=== PATIENT | female | born 2000 | race Caucasian/White ===

== ENCOUNTER 2024-06-01 18:05 | Inpatient (IN) ==
--- NOTE | 2024-06-01 18:27 | Emergency Department Note ---
Impression & Plan Symptomatic cholelithiasis ED Provider Note Provider: Fernando Philip MD DATE OF SERVICE: 06/01/2024 CHIEF COMPLAINT: Worsening upper quadrant pain, nausea and vomiting HISTORY OF PRESENT ILLNESS: Patient is a 24-year-old female history metabolic syndrome presenting here today due to worsening pain in the right upper quadrant after trying to eat hotdog roll a bit hot dog this evening and some significant nausea as well as episode of vomiting. Patient Nuys any trauma or syncope. No fever chills reported. Has been having issues recently and seen here yesterday emergency department. Found of a large gallstone in the gallbladder is planning on outpatient cholecystectomy. Did see outpatient general surgery this afternoon. However this evening things worsened and her their discussion if there is worsening she is to come here. Has not had anything for pain. Still feels nauseous. Pain in the upper quadrant and back region. Did take a Tylenol prior to arrival without improvement of pain. PAST MEDICAL HISTORY: As noted above MEDICATIONS: Reviewed home medication list SOCIAL HISTORY: PHYSICAL EXAM: GENERAL: alert and oriented in no acute distress on stretcher fatigued in appearance Head: normocephalic and atraumatic EYES: No injection, discharge or icterus. EOMI. NECK: Trachea midline. ENT: Mucous membranes pink and moist. LUNGS: Airway patent. No retractions or tachypnea HEART: Regular rate and rhythm. ABDOMEN: Soft, obese, significant tenderness in the right upper quadrant. SKIN: Acyanotic, warm, dry, without rashes EXTREMITIES: Without swelling, tenderness or deformity NEUROLOGICAL: No focal deficits. No aphasia. No facial droop or slurred speech. CONTINUOUS CARDIAC MONITORING: was ordered and showed a heart rate of 70s-90s bpm in normal sinus rhythm Patient's laboratory studies and imaging reviewed. Differential includes Appendicitis, ovarian cyst, ovarian torsion, ectopic , infections, diverticulitis, UTI, obstruction, mesenteric ischemia, aortic pathology, inflammatory bowel disease, renal colic, PUD, pancreatitis, b iliary pathology, hernia, volvulus, constipation, as well as other pathologies. IMPRESSION/MEDICAL DECISION MAKING: Patient appears somewhat uncomfortable. No fever or tachycardia on arrival. Will complete ultrasound of the gallbladder to evaluate for any significant change or shifting from prior imaging. Basic blood work sent. Given some fentanyl, IV fluid, and Zofran for symptoms and her decreased intake. Doubt this is cardiac or pulmonary in nature. Blood work here without leukocytosis or anemia. Normal platelet count. No severe electrolyte abnormalities. No evidence of elevated bilirubin or transaminitis noted. No lipase elevation and does not seem consistent with pancreatitis. Negative again today. Patient after medication and Zofran was having improvement of symptoms. The ultrasound completed did increase her right upper quadrant pain given some additional final upon arrival back in the emergency department. Ultrasound report still shows the large gallstone. Given her ongoing significant pain symptoms reach out discussed with the general surgery team. The night physician facilities maintenance assistant evaluated the patient here. Do not believe the patient is acutely infected or septic or suffering from cholangitis. Do believe the stone is symptomatic and give her some cholelithiasis symptoms. Given her significant pain and symptoms surgery team evaluated and will bring into the hospital for planned cholecystectomy hopefully tomorrow. DIAGNOSIS: Cholelithiasis DISPOSITION: Being evaluated by the surgery team for further care here Patient was agreeable with this plan. Past Med/Surg History Problem List (Updated 06/01/24 @ 21:11 by Fernando Philip M.D.) Right upper quadrant abdominal pain (Acute) Symptomatic cholelithiasis (Acute) Medical History Irregular menses Hepatic steatosis Metabolic syndrome Obesity BMI 60.0-69.9, adult Surgical History History of wisdom tooth extraction (2021) S/P tonsillectomy Family History Father Hypertension Diabetes Dyslipidemia Grandmother (Paternal) Lung cancer Grandmother (Maternal) Cerebral aneurysm Family/Other Diabetes Hypercholesteremia Denies family history of Ovarian cancer Prostate cancer Myocardial infarction Breast cancer Colorectal cancer Social History Smoking Status: Never smoker Do You Dip or Chew Tobacco: No; Hx Alcohol Use: Yes Alcohol Intake Frequency Comment: occasional Hx Substance Use: No Preferred Language: Malawian marital status: current occupational status: employed Feels Safe at Home: Yes during the past year weight has: remained stable Allergies Allergies Allergy/AdvReac Type Severity Reaction Status Date / Time No Known Allergies Allergy Unverified 06/01/24 20:33 Home Meds Previous Rx's Medication Instructions Recorded tirzepatide (weight loss) 2.5 2.5 mg (0.5 mL) subcut Q7D #2 mL 04/08/24 mg/0.5 mL subcutaneous solution (Zepbound) Results & Data (ED) Vital Signs Vital Signs - 24 hr 06/01/24 18:15 06/01/24 18:29 06/01/24 18:31 Temperature 36.6 C Temperature Source Temporal Artery Scan Pulse Rate 89 82 Pulse Rate [Apical] 74 Respiratory Rate 16 20 20 Respiratory Effort / Characteristics Non-Labored Non-Labored Spontaneous Respiratory Depth Normal Normal Blood Pressure 182/95 H Blood Pressure [Left Arm] 153/81 H Blood Pressure Mean 124 Blood Pressure Mean [Left Arm] 105 Blood Pressure Position [Left Arm] Lying Pulse Oximetry 99 100 100 Oxygen Delivery Method Room Air Room Air Room Air Sepsis Recent Fever Within 48 Hours No Sepsis New/Unexplained Change in Mental Status N/A Sepsis Action Taken by Nursing No Action Required 06/01/24 18:34 06/01/24 20:30 Temperature Temperature Source Pulse Rate 74 Pulse Rate [Apical] 75 Respiratory Rate 18 Respiratory Effort / Characteristics Respiratory Depth Blood Pressure Blood Pressure [Left Arm] 134/72 Blood Pressure Mean Blood Pressure Mean [Left Arm] 92 Blood Pressure Position [Left Arm] Pulse Oximetry 98 Oxygen Delivery Method Room Air Sepsis Recent Fever Within 48 Hours Sepsis New/Unexplained Change in Mental Status Sepsis Action Taken by Nursing Laboratory Data 06/01/24 18:26 06/01/24 18:26 Lab Results 06/01/24 Range/Units 18:26 WBC 8.55 (4.8-10.8) K/ul RBC 4.23 (4.20-5.40) M/uL Hgb 12.0 (12.0-16.0) g/dl Hct 36.6 L (37.0-47.0) % MCV 86.5 (80.0-100.0) fL MCH 28.4 (25.0-34.0) pg MCHC 32.8 (32.0-36.0) g/dL RDW Std Deviation 40.5 (36.4-46.3) fL RDW Coeff of Peggy 12.9 (11.5-14.5) % Plt Count 281 (130-400) K/uL MPV 10.5 (9.4-12.4) fL Immature Gran % (Auto) 0.5 % Neut % (Auto) 69.8 % Lymph % (Auto) 24.3 % Porter % (Auto) 4.2 % Eos % (Auto) 0.8 % Baso % (Auto) 0.4 % Neut # (Auto) 5.97 (1.40-6.50) K/uL Lymph # (Auto) 2.08 (1.20-3.40) K/uL Porter # (Auto) 0.36 (0.11-0.59) K/uL Eos # (Auto) 0.07 (0.00-0.50) K/uL Baso # (Auto) 0.03 (0.00-0.20) K/uL Immature Gran # (Auto) 0.04 (0.01-0.20) K/uL PT 10.2 (9.0-12.0) Seconds INR 0.9 (0.9-1.1) Sodium 140 (136-145) mmol/L Potassium 3.3 L (3.5-5.1) mmol/L Chloride 104 (98-107) mmol/L Carbon Dioxide 31 (21-32) mmol/L Anion Gap 5 (3-11) BUN 10 (6-23) mg/dl Creatinine 0.80 (0.6-1.2) mg/dl Est Cr Clr Drug Dosing 167.5 ml/min eGFR 104.80 BUN/Creatinine Ratio 12.5 (10-20) Glucose 95 (70-99(Fasting)) mg/dl Calcium 9.5 (8.6-10.3) mg/dl Total Bilirubin 0.3 (0.2-1.0) mg/dl AST 16 (13-39) U/L ALT 17 (7-52) U/L Alkaline Phosphatase 71 (34-104) U/L Total Protein 7.6 (6.0-8.3) gm/dl Albumin 4.3 (3.4-5.0) gm/dl Globulin 3.3 (2.5-4.0) gm/dl Albumin/Globulin Ratio 1.3 (0.9-2) Lipase 20 (11-82) U/L HCG, Qual Negative (Negative) Administered Medications Discontinued Medications Fentanyl Citrate (Fentanyl Citrate Pf 100 Mcg/2 Ml Vial) 50 mcg IV NOW STA Stop: 06/01/24 18:25 Last Admin: 06/01/24 18:40 Dose: 50 mcg Documented By: KYARA Fentanyl Citrate (Fentanyl Citrate Pf 100 Mcg/2 Ml Vial) 50 mcg IV NOW STA Stop: 06/01/24 20:02 Last Admin: 06/01/24 20:11 Dose: 50 mcg Documented By: CARSON Sodium Chloride (Nss) 1,000 mls @ 999 mls/hr IV .Q1H1M ONE Stop: 06/01/24 19:25 Last Infusion: 06/01/24 20:13 Dose: Infused Documented By: Admin: 06/01/24 18:40 Dose: 999 mls/hr Documented By: KYARA Ondansetron HCl (Ondansetron Inj 2 Mg/Ml 2 Ml Vial) 4 mg IV NOW STA Stop: 06/01/24 18:25 Last Admin: 06/01/24 18:40 Dose: 4 mg Documented By: KYARA Imaging Data Radiologist's Impression: Gallbladder Ultrasound 06/01/24 18:24 Exam(s): US GALLBLADDER EXAM: US Abdomen Limited, Gallbladder CLINICAL HISTORY: Reason for exam: pain, stone gallbladder. TECHNIQUE: Real-time ultrasound of the right upper quadrant with image documentation. COMPARISON: Right upper quadrant ultrasound: 05/31/2024 FINDINGS: Exam somewhat limited due to excess bowel gas. Gallbladder: Mild increase gallbladder wall thickness: 3.4 mm. Redemonstrates a 2.0 cm large non-mobile gallstone in the neck of the bladder. Reported negative sonographic Euceda's sign. Common bile duct: Unremarkable as visualized. No stones. No dilation. CBD: 3 mm in diameter. Pancreas: Obscured by bowel gas. Other findings: The liver measures 20 cm in length. Increased parenchymal echogenicity/diffuse hepatic steatosis. . IMPRESSION: Redemonstrates a 2 cm large non-mobile gallstone within the gallbladder neck. Mildly increased bladder wall thickness.. Reported negative sonographic Euceda's sign. The need for nuclear HIDA scan can be determined clinically. No biliary ductal dilatation. Hepatomegaly. Diffuse fatty hepatic infiltration. . Electronically signed by: Sam Reyna MD, BEVERLEY 06/01/24 20:19 PM Discharge Plan Visit Data Chief Complaint: Flank Pain Stated Complaint: RT FLANK PAIN ED Provider: Fernando Philip Discharge Problem: Symptomatic cholelithiasis Patient Disposition: Admitted As Inpatient Discharge Instructions Interventions: ED Discharge Assessment Last Done: 06/01/24 21:04 Forms Stand Alone Forms: Resale Therapy Prescriptions Prescriptions: No Action Zepbound 2.5 mg/0.5 mL solution 2.5 mg subcut Q7D Qty: 2 2RF Rx Instructions: Patient has not started. Referrals Referrals: Eileen Parks CRNP [Primary Care Provider] -
[2024-06-01] MEDS: fentaNYL citrate PF 100 MCG/2 ML VIAL IV STA ×2 (18:40→20:11)
[2024-06-01] MEDS: SODIUM CHLORIDE 0.9% 1,000 ML IV ONE (18:40)
[2024-06-01] MEDS: ONDANSETRON INJ 2 MG/ML 2 ML VIAL IV STA (18:40)
[2024-06-01 18:48] LABS: Basophils # (auto) 0.03 K/uL (0.00-0.20); Basophils % (auto) 0.4 %; Eosinophils # (auto) 0.07 K/uL (0.00-0.50); Eosinophils % (auto) 0.8 %; Hematocrit (blood only) 36.6 % (37.0-47.0); Immature Granulocytes # (auto) 0.04 K/uL (0.01-0.20); Immature Granulocytes % (auto) 0.5 %; Lymphocytes # (auto) 2.08 K/uL (1.20-3.40); Lymphocytes % (auto) 24.3 %; Mean Corpuscular Hemoglobin 28.4 pg (25.0-34.0); Mean Corpuscular Hgb Conc 32.8 g/dL (32.0-36.0); Mean Corpuscular Volume 86.5 fL (80.0-100.0); Mean Platelet Volume 10.5 fL (9.4-12.4); Monocytes # (auto) 0.36 K/uL (0.11-0.59); Monocytes % (auto) 4.2 %; Neutrophils # (auto) 5.97 K/uL (1.40-6.50); Neutrophils % (auto) 69.8 %; Platelet Count 281 K/uL (130-400); RDW Coefficient of Variation 12.9 % (11.5-14.5); RDW Standard Deviation 40.5 fL (36.4-46.3); Red Blood Count 4.23 M/uL (4.20-5.40); White Blood Count 8.55 K/ul (4.8-10.8)
[2024-06-01 19:03] LABS: Albumin Globulin Ratio 1.3 (0.9-2); Albumin Level 4.3 gm/dl (3.4-5.0); BUN Creatinine Ratio 12.5 (10-20); Bilirubin,Total 0.3 mg/dl (0.2-1.0); Calcium 9.5 mg/dl (8.6-10.3); Creatinine Clr Calc Pharmacy 167.5 ml/min; Globulin 3.3 gm/dl (2.5-4.0); Potassium 3.3 mmol/L (3.5-5.1); Total Protein 7.6 gm/dl (6.0-8.3)
[2024-06-01 19:08] LABS: Pregnancy Test, Serum Negative (Negative)
[2024-06-01 19:21] LABS: INR 0.9 (0.9-1.1); Prothrombin Time 10.2 Seconds (9.0-12.0)
--- NOTE | 2024-06-01 20:20 | Ultrasound Report ---
Exam(s): US GALLBLADDER EXAM: US Abdomen Limited, Gallbladder CLINICAL HISTORY: Reason for exam: pain, stone gallbladder. TECHNIQUE: Real-time ultrasound of the right upper quadrant with image documentation. COMPARISON: Right upper quadrant ultrasound: 05/31/2024 FINDINGS: Exam somewhat limited due to excess bowel gas. Gallbladder: Mild increase gallbladder wall thickness: 3.4 mm. Redemonstrates a 2.0 cm large non-mobile gallstone in the neck of the bladder. Reported negative sonographic Euceda's sign. Common bile duct: Unremarkable as visualized. No stones. No dilation. CBD: 3 mm in diameter. Pancreas: Obscured by bowel gas. Other findings: The liver measures 20 cm in length. Increased parenchymal echogenicity/diffuse hepatic steatosis. . IMPRESSION: Redemonstrates a 2 cm large non-mobile gallstone within the gallbladder neck. Mildly increased bladder wall thickness.. Reported negative sonographic Euceda's sign. The need for nuclear HIDA scan can be determined clinically. No biliary ductal dilatation. Hepatomegaly. Diffuse fatty hepatic infiltration. . Electronically signed by: Sam Reyna MD, CARLOSR 06/01/24 20:19 PM
[2024-06-01] MEDS ORDERED: ONDANSETRON INJ 2 MG/ML 2 ML VIAL IV PRN (20:25)
--- NOTE | 2024-06-01 20:25 | History & Physical Report ---
Date of Service June 01, 2024 Assessment & Plan (1) Symptomatic cholelithiasis: Plan: Due to the patient's findings on imaging as well as her clinical presentation she will be admitted to the surgical service proceeding as follows: I believe the patient is suffering from biliary colic I will therefore tentatively schedule her for a cholecystectomy with Dr. Aaron Bartholomew on 06/02/2024 We will provide analgesics Will provide antiemetics I feel be acceptable for patient have clear liquids only until midnight tonight at which time she will be made n.p.o. Once patient is made n.p.o. we will hydrate her with intravenous fluids We will repeat labs in the morning to ensure that there is no elevation of her LFTs or lipase As it does not appear that the patient has cholecystitis will not place her on scheduled antibiotics primarily use standard preoperative doses of antibiotics prior to her surgery Additional recommendations with forthcoming based on operative findings and her postoperative recovery thereafter Will use SCDs for DVT prevention, no chemical means due to planned surgery She will be a level 1 full code History of Present Illness Chief Complaint: Biliary colic Primary Care Provider: LEYDI Alicea This is a 24-year-old female who was seen in the emergency department on 05/31/2024 secondary to right upper quadrant abdominal pain. At that time the patient noted that she has been having some intermittent right upper quadrant abdominal pain for approximately 2 weeks but in the 2 days preceding her visit to the emergency department she notes that the pain had gotten somewhat worse. She notes that the pain is located again in the right upper quadrant as well as epigastric pain without additional radiation. As the pain had gotten worse she did go to the emergency department as noted above. During her visit in the emergency department she did have an abdominal ultrasound. This showed that patient did not have any evidence of cholecystitis but she had a large, nonmobile gallstone within the gallbladder neck. During this visit she also had labs where CBC revealed white blood cell count, hemoglobin, hematocrit, platelet count were normal. Chemistry profile showed sodium and potassium as well as the BUN and creatinine were normal. There is no elevation of patient's LFTs or lipase. Patient was discharged home from the above-noted emergency department visit. [facility], Dr. Mg in the office today and the patient reports that tentative plans were for to have her gallbladder surgically removed potentially this 06/04/2024. Patient notes that she went home after her visit at the surgery office and she began to develop what she describes as nausea. She then felt that her symptoms may have been because she did not eat much throughout the day so she ate part of a hot dog and then developed severe right upper quadrant pain. She reported nausea without vomiting and also some loose bowel movements. She did not have any fevers, shakes, or chills. She did not report any modifying factors other than medicines that were administered in the emergency department. Today in the emergency department the patient had a repeat gallbladder ultrasound. This showed again the patient had a gallstone in the gallbladder neck. Did not appear to be much in the way of pericholecystic fluid or gallbladder wall thickness. Labs were repeated and a CBC again showed white blood cell count, hemoglobin, and platelet count were normal. Her hematocrit was 36.6. Chemistry profile showed sodium was 140 with potassium 3.3. Her BUN and creatinine were both within the normal range. There is no elevation of her LFTs or lipase. A test was noted to be negative. At the time of my interview she was resting comfortably in bed and she was no distress Concerning past medical history the patient denies any active medical problems Concerning past surgical history she has had her wisdom teeth removed but no abdominal surgeries Concerning social history she does not smoke Concerning family history there is no family history of coronary artery disease . Allergies Allergy/AdvReac Type Severity Reaction Status Date / Time No Known Allergies Allergy Unverified 06/01/24 20:33 Home Medications Medication Instructions Recorded Confirmed Type tirzepatide (weight loss) 2.5 2.5 mg (0.5 mL) subcut Q7D #2 mL 04/08/24 04/08/24 Rx mg/0.5 mL subcutaneous solution (Zepbound) oxycodone 5 mg tablet 5 - 10 mg (1 - 2 x 5 mg) PO 06/02/24 Rx .[id number] PRN pain, for initial therapy, max 6 tabs per day #15 tabs Past Med/Surg History Problem List (Updated 06/01/24 @ 21:11 by Fernando Philip M.D.) Right upper quadrant abdominal pain (Acute) Symptomatic cholelithiasis (Acute) Medical History Irregular menses Hepatic steatosis Metabolic syndrome Obesity BMI 60.0-69.9, adult Surgical History History of wisdom tooth extraction (2021) S/P tonsillectomy Family History Father Hypertension Diabetes Dyslipidemia Grandmother (Paternal) Lung cancer Grandmother (Maternal) Cerebral aneurysm Family/Other Diabetes Hypercholesteremia Denies family history of Ovarian cancer Prostate cancer Myocardial infarction Breast cancer Colorectal cancer Social History Smoking Status: Never smoker Do You Dip or Chew Tobacco: No; Hx Alcohol Use: Yes Alcohol type: wine Alcohol Intake Frequency Comment: occasional Hx Substance Use: No Preferred Language: Danish Communication Ability: Effective Retort Condenser Attendant Required: No Beliefs That Will Affect Care: None marital status: Current Living Situation: Spouse current occupational status: employed Feels Safe at Home: Yes Safety Concerns: Feels Safe At This Time during the past year weight has: remained stable Assistive Devices: None Review of Systems Review of Systems: All systems reviewed & are unremarkable except as noted in HPI & below Physical Exam Constitutional: WD/WN, vitals as above Eyes: + anicteric sclerae ENMT: Ears: no hearing impairment and no external ear abnormality Mouth: no oropharynx abnormality Neck: trachea midline Respiratory: normal respiratory effort; no respiratory distress and no labored breathing Cardiovascular: Rate/Rhythm: regular rate and regular rhythm Gastrointestinal (Abdomen): The abdomen is noted to be rotund but soft and nonrigid. There is no rebound tenderness or guarding. Patient did have pain with palpation in the right upper quadrant with palpation Musculoskeletal: No calf tenderness Skin: no jaundice Neurologic: moves all extremities Psychiatric: A+Ox3, euthymic affect Results & Data Results & Data Vital Signs (Past 12 Hours) Vital Signs Temp Pulse Pulse Resp BP BP Pulse Ox 06/01/24 18:34 74 06/01/24 18:31 82 20 100 06/01/24 18:29 74 20 153/81 H 100 06/01/24 18:15 36.6 C 89 16 182/95 H 99 O2 Del Method 06/01/24 18:34 06/01/24 18:31 Room Air 06/01/24 18:29 Room Air 06/01/24 18:15 Room Air PG Care Time/CCT Total # of Minutes Spent Total Time Spent with Patient: Total time spent is greater than 50% in coordination of care (as documented) at patient's floor/unit and/or counseling patient: Coding Level of Care Code 95445 INT INP/OBS CARE 3/75MIN Diagnoses Symptomatic cholelithiasis K80.20
[2024-06-01 21:20] LABS: Appearance Urine Clear (Clear); Bilirubin Urine Negative (Negative); Blood Urine Negative (Negative); Color Urine Yellow; Glucose Urine UA Negative (Negative); Ketones Urine Negative (Negative); Leukocyte Esterase Urine Negative (Negative); Nitrite Urine Negative (Negative); Protein Urine Negative (Negative); Specific Gravity Urine 1.018 (1.000-1.030); Urobilinogen Urine Negative (Negative)
[2024-06-01] MEDS: NSS + 20MEQ KCL 20 MEQ/1,000 ML BAG IV SCH (23:08)
[2024-06-02] MEDS: MoRPHine SULFATE 4 MG/ML 1 ML CARP\\VIAL IV PRN ×2 (04:10→16:00)
[2024-06-02 06:32] LABS: Basophils # (auto) 0.03 K/uL (0.00-0.20); Basophils % (auto) 0.5 %; Eosinophils # (auto) 0.12 K/uL (0.00-0.50); Eosinophils % (auto) 1.9 %; Hematocrit (blood only) 32.1 % (37.0-47.0); Hemoglobin 10.4 g/dl (12.0-16.0); Immature Granulocytes # (auto) 0.03 K/uL (0.01-0.20); Immature Granulocytes % (auto) 0.5 %; Lymphocytes # (auto) 1.99 K/uL (1.20-3.40); Lymphocytes % (auto) 30.8 %; Mean Corpuscular Hemoglobin 28.1 pg (25.0-34.0); Mean Corpuscular Hgb Conc 32.4 g/dL (32.0-36.0); Mean Corpuscular Volume 86.8 fL (80.0-100.0); Mean Platelet Volume 10.4 fL (9.4-12.4); Monocytes # (auto) 0.39 K/uL (0.11-0.59); Neutrophils # (auto) 3.91 K/uL (1.40-6.50); Neutrophils % (auto) 60.3 %; Platelet Count 217 K/uL (130-400); RDW Coefficient of Variation 12.9 % (11.5-14.5); RDW Standard Deviation 40.4 fL (36.4-46.3); White Blood Count 6.47 K/ul (4.8-10.8)
[2024-06-02 06:59] LABS: Albumin Globulin Ratio 1.3 (0.9-2); Albumin Level 3.6 gm/dl (3.4-5.0); BUN Creatinine Ratio 17.6 (10-20); Bilirubin,Total 0.3 mg/dl (0.2-1.0); Calcium 8.5 mg/dl (8.6-10.3); Creatinine Clr Calc Pharmacy 197.7 ml/min; Globulin 2.7 gm/dl (2.5-4.0); Total Protein 6.3 gm/dl (6.0-8.3)
[2024-06-02] MEDS ORDERED: DEXAMETHASONE SOD INJ 4 MG/ML VIAL ONE (09:11)
[2024-06-02] MEDS ORDERED: PROPOFOL IV EMULSION 10 MG/ML 20 ML VIAL IV ONE ×2 (09:11)
[2024-06-02] MEDS ORDERED: fentaNYL citrate PF 100 MCG/2 ML VIAL ONE ×2 (09:11→13:14)
[2024-06-02] MEDS ORDERED: MIDAZOLAM HCL 1 MG/ML 2ML VIAL ONE (09:11)
[2024-06-02] MEDS ORDERED: ROCURONIUM BROMIDE 10 MG/ML 5 ML VIAL IV ONE ×10 (09:11→13:26)
[2024-06-02] MEDS ORDERED: ONDANSETRON INJ 2 MG/ML 2 ML VIAL ONE (09:11)
[2024-06-02] MEDS ORDERED: LIDOCAINE 2% 2 ML VIAL/AMP(20MG/ML) INFIL ONE (09:11)
[2024-06-02] MEDS: LACTATED RINGER'S 1,000 ML IV SCH (10:05)
[2024-06-02] MEDS: SCOPOLAMINE 1 MG/72 HR TDSY PATCH TD ONE (10:21)
[2024-06-02] MEDS ORDERED: ePHEDrine sulfate 50 MG/ML AMP IV PRN (10:24)
[2024-06-02] MEDS ORDERED: ATROPINE SULFATE 0.1 MG/ML 10ML SYR IV PRN (10:24)
[2024-06-02] MEDS ORDERED: PROMETHAZINE HCL 6.25 MG in SODIUM CHLORIDE 0.9% 50 ML IV PRN (10:24)
[2024-06-02] MEDS ORDERED: ONDANSETRON INJ 2 MG/ML 2 ML VIAL IV PRN (10:24)
--- NOTE | 2024-06-02 10:24 | Anesthesiology Consultation ---
Date of Service June 02, 2024 Assessment & Plan Chart Review Chart Review: Acceptable Risk for Surgery and Patient NOT seen in Pre Admission Testing Consults Requested none ASA ASA3 Proposed Anesthesia Anesthesia Type: General Risk / Benefits Reviewed With: PT / POA / Parent / Guardian, Accepts Plan and Informed Consent Obtained History Surgery Operation Date: 06/02/24 07:00 Proposed Procedures p Laparoscopic Cholecystectomy - Aaron Bartholomew, DO Height/Weight Height: 5 ft 5 in Weight: 162 kg Allergies Allergy/AdvReac Type Severity Reaction Status Date / Time No Known Allergies Allergy Unverified 06/01/24 20:33 Medications Home Medications Medication Instructions Recorded Confirmed Last Taken tirzepatide (weight loss) 2.5 2.5 mg (0.5 mL) subcut Q7D #2 mL 04/08/24 04/08/24 Unknown mg/0.5 mL subcutaneous solution (Zepbound) oxycodone 5 mg tablet 5 - 10 mg (1 - 2 x 5 mg) PO 06/02/24 Unknown .[id number] PRN pain, for initial therapy, max 6 tabs per day #15 tabs Active Medications Generic Name Dose Route Start Last Admin Trade Name Freq PRN Reason Stop Dose Admin Potassium Chloride/Sodium Chloride 20 meq in 1,000 mls @ 75 mls/hr 06/01/24 23:55 06/01/24 23:08 Normal Saline W/20 Meq Kcl IV 06/03/24 02:34 75 mls/hr .[id number] KATHI Administration Lactated Ringer's 1,000 mls @ 0 mls/hr 06/02/24 10:15 06/02/24 10:06 Lr IV 06/03/24 10:14 0 mls/hr .Q0M KATHI Infusion KVO Morphine Sulfate 3 mg 06/01/24 20:25 06/02/24 07:41 Morphine Sulfate 4 Mg/Ml 1 Ml Carp\Vial IV 06/15/24 20:24 3 mg Q3H PRN Administration Pain NPO Date Last Intake of Fluids: 06/01/24 Time Last Intake of Fluids: 20:00 Date Last Intake of Solids: 06/01/24 Time Last Intake of Solids: 16:00 Past Medical History Medical History Irregular menses Hepatic steatosis Metabolic syndrome Obesity BMI 60.0-69.9, adult Past Family History Family History Father Hypertension Diabetes Dyslipidemia Grandmother (Paternal) Lung cancer Grandmother (Maternal) Cerebral aneurysm Family/Other Diabetes Hypercholesteremia Denies family history of Ovarian cancer Prostate cancer Myocardial infarction Breast cancer Colorectal cancer Past Surgical History Surgical History History of wisdom tooth extraction (2021) S/P tonsillectomy Past Anesthesia History No Hx of Anesthesia Complications and No Family Hx of Anesthesia Complications Social History Smoking Status: Never smoker Do You Dip or Chew Tobacco: No Hx Alcohol Use: Yes Alcohol type: wine alcohol intake frequency: holidays/special occasions only Hx Substance Use: No Review of Systems ROS Unobtainable: All systems reviewed & are unremarkable except as noted in HPI & below Physical Exam Vital Signs Last Vital Signs Temp 36.7 C 06/02/24 09:56 Pulse 91 H 06/02/24 09:56 Resp 20 06/02/24 09:56 BP 136/78 06/02/24 09:56 Pulse Ox 98 06/02/24 09:56 O2 Del Method Room Air 06/02/24 09:56 ENMT Mouth: no TMJ abnormality Thyromental Distance: > or= 3.5 Finger Breadths Mallampati Class: II Neck normal visual inspection and trachea midline; neck extension not limited Respiratory normal respiratory effort Auscultation: lungs clear to auscultation bilaterally Cardiovascular Rate/Rhythm: regular rate and regular rhythm Heart Sounds: no murmur Musculoskeletal Spine: normal cervical ROM Extremities: full ROM of extremities Neurologic moves all extremities Psychiatric Orientation: alert and oriented x 3 Testing Laboratory Results 06/02/24 06:11 06/02/24 06:11 PT 10.2 Seconds (9.0-12.0) 06/01/24 18:26 INR 0.9 (0.9-1.1) 06/01/24 18:26 Urine Color Yellow 06/01/24 Unknown Urine Appearance Clear (Clear) 06/01/24 Unknown Urine pH 6.0 (4.5-7.5) 06/01/24 Unknown Ur Specific [place] 1.018 (1.000-1.030) 06/01/24 Unknown Urine Protein Negative (Negative) 06/01/24 Unknown Urine Glucose (UA) Negative (Negative) 06/01/24 Unknown Urine Ketones Negative (Negative) 06/01/24 Unknown Urine Nitrite Negative (Negative) 06/01/24 Unknown Ur Leukocyte Esterase Negative (Negative) 06/01/24 Unknown
--- NOTE | 2024-06-02 11:18 | Surgery Progress Note ---
Date of Service June 02, 2024 Assessment & Plan (1) Symptomatic cholelithiasis: Plan: Ultrasound images and results were personally viewed and interpreted by myself Her labs are all within normal limits however she has continued pain without sonographic signs of cholecystitis Will plan on a laparoscopic cholecystectomy, possible open, possible intraoperative cholangiogram Consent was obtained, risks discussed including bleeding, infection, bile leak, ductal injury Admission and Anticipated Discharge Date Admission Date: June 01, 2024 Subjective Patient seen and examined. Still complains of right upper quadrant pain. Denies any fevers or chills. Denies any nausea or vomiting. Review of Systems Constitutional: no fever and no chills Respiratory: no cough and no dyspnea Cardiovascular: no chest pain and no dyspnea on exertion Gastrointestinal: + abdominal pain; no nausea and no vomit ing Genitourinary: no dysuria and no urinary urgency Integumentary: no acne and no lesions Psychiatric: no behavioral changes and no depression Physical Exam Constitutional: WD/WN, vitals as above Eyes: PERRL, conjunctivae normal, anicteric sclerae ENMT: external ear and nose normal, oropharynx normal Neck: trachea midline, no thyromegaly Respiratory: normal respiratory effort, lungs clear to auscultation Cardiovascular: RRR, no murmur, no edema Gastrointestinal (Abdomen): Inspection/Auscultation: abdomen normal to inspection; abdomen not distended Percussion/Palpation: + abdomen tender (Right upper quadrant) and abdomen soft; no guarding and no hernia Skin: no rashes, warm and dry Psychiatric: A+Ox3, euthymic affect Results & Data Vital Signs (Past 12 Hours) Vital Signs Temp Pulse Resp BP Pulse Ox O2 Del Method 06/02/24 09:56 36.7 C 91 H 20 136/78 98 Room Air 06/02/24 08:01 36.6 C 70 16 136/80 97 Room Air 06/02/24 08:01 Room Air PG Care Time/CCT Total # of Minutes Spent Total Time Spent with Patient: Total time spent is greater than 50% in coordination of care (as documented) at patient's floor/unit and/or counseling patient: Coding Level of Care Code 34453 SUB INP/OBS CARE 2/35MIN Diagnoses Symptomatic cholelithiasis K80.20
[2024-06-02] MEDS: cefOXitin 2,000 MG in DEXTROSE 5 % MINI-B 50 ML IV SCH (12:58)
[2024-06-02] MEDS ORDERED: METOPROLOL TARTRATE 1 MG/ML VIAL IV ONE ×3 (13:26)
[2024-06-02] MEDS ORDERED: SUGAMMADEX SODIUM 200 MG/2 ML VIAL IV ONE (13:26)
[2024-06-02] MEDS: BUPIVACAINE/EPINEPHRINE 0.25% 1:200,000 30 ML VIAL ONE (13:49)
--- NOTE | 2024-06-02 14:12 | Post Operative Brief Note ---
PG Immediate Post Op with CF Date of Surgery June 02, 2024 Pre & Post Diagnosis Operation Date: 06/02/24 07:00 Pre-Op Diagnosis: Symptomatic Cholelithiasis Post-Op Diagnosis: Symptomatic Cholelithiasis I identified the patient and participated in the time-out.: Yes Procedure Operation Date: 06/02/24 07:00 Actual Procedures p Laparoscopic Cholecystectomy(Not Applicable) - Aaron Bartholomew DO Surgeon Aaron Bartholomew DO [employer] Lab Technician Nelly Lepe PA-C Estimated Blood Loss 5 Findings Consistent with Post-Op Diagnosis Specimens Specimen Description: A: Gallbladder and contents Anesthesia Type General Complications none Disposition Disposition: Recovery Room
--- NOTE | 2024-06-02 14:14 | Operative Report ---
PG Post Operative Report Pre & Post Diagnosis Operation Date: 06/02/24 07:00 Pre-Op Diagnosis: Symptomatic Cholelithiasis Post-Op Diagnosis: Symptomatic Cholelithiasis I identified the patient and participated in the time-out.: Yes Procedure Operation Date: 06/02/24 07:00 Actual Procedures p Laparoscopic Cholecystectomy(Not Applicable) - Aaron Bartholomew DO Surgeon Aaron Bartholomew DO Batch Tank Controller Nelly Lepe PA-C Estimated Blood Loss 5 Findings Consistent with Post-Op Diagnosis Fluids see anesthesia record Specimens Gallbladder to pathology Drains None Anesthesia Type General Complications none Disposition Disposition: Recovery Room Indications 24-year-old female with symptomatic cholelithiasis Description of Procedure The patient was brought to the operating room and placed in the supine position with both arms extended. At this time she underwent general endotracheal anest hesia without any problems. She was given appropriate pre-operative antibiotics. Her abdomen prepped and draped in the usual sterile fashion. A timeout was called, the procedure was verified as Laparoscopic cholecystectomy, possible open, possible intra-operative cholangiogram. Surgical, nursing and anesthesia teams agreed and the procedure was begun. After injection of 0.25% Marcaine with epinephrine, a supraumbilical vertical incision was made and carried down to the fascia using S-retractors. The abdominal wall was then elevated with towel clamps and abdomen entered using the Veress needle confirming position using the saline drop test. Pneumoperitoneum was established. 5mm trocar was placed. Laparoscope was introduced. No injury from entry into the abdomen was visualized after inspection of the abdomen. The gallbladder itself was slightly edematous. Three further ports were placed under direct visualization. One 12mm in the subxiphoid region and two 5mm in the RUQ. At this time the abdomen was inspected and the gallbladder identified. The gallbladder fundus was grasped and retracted cephalad. The gallbladder infundibulum was then grasped and retracted laterally. The cystic duct and cystic artery were then identified and skeletonized. The critical view of safety was obtained. They were both then clipped twice proximally and once distally and then divided using scissors. The gallbladder was then taken off of the liver bed using electrocautery and placed in an endocatch bag and removed from the subxiphoid port. The liver bed was then inspected and no bile leak or bleeding was evident. The subxiphoid port was then closed using 0-Vicryl using the suture passer. The trocars were then removed under direct visualization and no bleeding was present. Abdomen was desufflated. The skin was then closed using 4-0 Monocryl in a subcuticular fashion. Surgical glue was applied. Needle and sponge counts were correct x 2. At this time the patient was awoken from anesthesia and extubated having remained stable throughout the entire case. The patient was then transported to PACU in stable condition. The physician agency sales management assistant was present scrubbed for the entire case. She was essential in positioning, prepping and draping the patient, retraction exposure, driving the laparoscope, closure of the incisions and placement of the dressings. I attest to the content of the Intraoperative Record and any orders documented therein. Any exceptions are noted below.
[2024-06-02] MEDS: fentaNYL citrate PF 100 MCG/2 ML VIAL IV PRN (14:34)
[2024-06-02] MEDS: ACETAMINOPHEN 1000 MG/100 ML IV IV ONE (14:52)
[2024-06-02] MEDS: HYDROmorphone INJ 1 MG/ML SYRINGE IV PRN (14:56)
--- NOTE | 2024-06-02 15:14 | Anesthesiology Progress Note ---
Date of Service June 02, 2024 Anesthesia Post Procedure Vital Signs Vital Signs: Temp Pulse Pulse Pulse Resp BP BP 06/02/24 15:05 76 19 158/80 H 06/02/24 14:55 76 20 157/78 H 06/02/24 14:45 76 20 162/80 H 06/02/24 14:35 79 21 168/75 H 06/02/24 14:26 36.4 C L 81 20 151/89 H 06/02/24 09:56 36.7 C 91 H 20 136/78 06/02/24 08:01 36.6 C 70 16 136/80 06/02/24 08:01 06/01/24 21:50 36.6 C 70 20 126/71 06/01/24 20:30 75 18 134/72 06/01/24 18:34 74 06/01/24 18:31 82 20 06/01/24 18:29 74 20 153/81 H 06/01/24 18:15 36.6 C 89 16 182/95 H Pulse Ox O2 Del Method O2 Flow Rate 06/02/24 15:05 93 Oxymask 4 06/02/24 14:55 93 Oxymask 4 06/02/24 14:45 94 Oxymask 12 06/02/24 14:35 96 Oxymask 12 06/02/24 14:26 97 Oxymask 12 06/02/24 09:56 98 Room Air 06/02/24 08:01 97 Room Air 06/02/24 08:01 Room Air 06/01/24 21:50 98 Room Air 06/01/24 20:30 98 Room Air 06/01/24 18:34 06/01/24 18:31 100 Room Air 06/01/24 18:29 100 Room Air 06/01/24 18:15 99 Room Air Pain Intensity Right Abdomen: Pain Intensity: 4 Transfer of Care Handoff Completed per policy Notes Mental Status: alert / awake / arousable Patient Amnestic to Procedure: Yes Nausea / Vomiting: adequately controlled Pain: adequately controlled Airway Patency, RR, SpO2: stable & adequate BP & HR: stable & adequate Hydration State: stable & adequate Anesthetic Complications: no major complications apparent and Pt Satisfied with anesthetic care
[2024-06-02] MEDS ORDERED: oxyCODONE HCL IR 5 MG TAB (IMMEDIATE RELEASE) PO PRN (15:39)
[2024-06-02] MEDS ORDERED: ACETAMINOPHEN 1,000 MG/100 ML VIAL IV PRN (15:39)
[2024-06-02] MEDS ORDERED: MoRPHine SULFATE 2 MG/ML CARP IV PRN (15:39)
[2024-06-02] MEDS: oxyCODONE HCL IR 5 MG TAB (IMMEDIATE RELEASE) PO PRN (16:55)
[2024-06-03 07:25] VITALS: BP 134/81; RESP 16; TEMP 97.9; O2SAT 94
--- NOTE | 2024-06-03 07:35 | Surgery Progress Note ---
Date of Service June 03, 2024 Assessment & Plan (1) Symptomatic cholelithiasis: Plan: POD#1 lap jona Vitals stable Patient is feeling well. pain controlled. tolerating diet. no n/v abdominal incisions c/d/i encourage oob ambulating today if does well after bfast will plan on dispo to home today d/c instructions reviewed. f/u in clinic within [address] wilkinson Admission and Anticipated Discharge Date Admission Date: June 01, 2024 Subjective Patient reports feeling well. Pain controlled. Diet tolerated without nausea /vomiting. Symptoms she presented with are much improved. Physical Exam Physical Exam: awake/alert, no distress Gastrointestinal (Abdomen): Inspection/Auscultation: + abdominal surgical incision (c/d/i with skin glue, no signs of infection ); abdomen not distended Percussion/Palpation: + abdomen tender (expected post op discomfort to palpation ) and abdomen soft Results & Data Vital Signs (Past 12 Hours) Vital Signs Temp Pulse Resp BP Pulse Ox O2 Del Method 06/03/24 07:24 97.9 F 75 16 134/81 94 Room Air 06/03/24 03:00 98.1 F 60 18 110/69 96 Room Air 06/02/24 23:14 97.9 F 96 H 18 125/73 94 Room Air 06/02/24 20:03 98.4 F 84 18 120/74 94 Room Air PG Care Time/CCT Total # of Minutes Spent Total Time Spent with Patient: Total time spent is greater than 50% in coordination of care (as documented) at patient's floor/unit and/or counseling patient: Coding Level of Care Code 47621 Post Operative Follow-Up Diagnoses Symptomatic cholelithiasis K80.20
[2024-06-03 08:18] VITALS: PULSE 72
--- NOTE | 2024-06-03 13:48 | Discharge Summary ---
Date of Service June 03, 2024 Admission HPI Per Admitting Provider This is a 24-year-old female who was seen in the emergency department on 05/31/2024 secondary to right upper quadrant abdominal pain. At that time the patient noted that she has been having some intermittent right upper quadrant abdominal pain for approximately 2 weeks but in the 2 days preceding her visit to the emergency department she notes that the pain had gotten somewhat worse. She notes that the pain is located again in the right upper quadrant as well as epigastric pain without additional radiation. As the pain had gotten worse she did go to the emergency department as noted above. During her visit in the emergency department she did have an abdominal ultrasound. This showed that patient did not have any evidence of cholecystitis but she had a large, nonmobile gallstone within the gallbladder neck. During this visit she also had labs where CBC revealed white blood cell count, hemoglobin, hematocrit, platelet count were normal. Chemistry profile showed sodium and potassium as well as the BUN and creatinine were normal. There is no elevation of patient's LFTs or lipase. Patient was discharged home from the above-noted emergency department visit. She was seen by [facility] surgery, Dr. Mg in the office today and the patient reports that tentative plans were for to have her gallbladder surgically removed potentially this 06/04/2024. Patient notes that she went home after her visit at the surgery office and she began to develop what she describes as nausea. She then felt that her symptoms may have been because she did not eat much throughout the day so she ate part of a hot dog and then developed severe right upper quadrant pain. She reported nausea without vomiting and also some loose bowel movements. She did not have any fevers, shakes, or chills. She did not report any modifying factors other than medicines that were administered in the emergency department. Today in the emergency department the patient had a repeat gallbladder ultrasound. This showed again the patient had a gallstone in the gallbladder neck. Did not appear to be much in the way of pericholecystic fluid or gallbladder wall thickness. Labs were repeated and a CBC again showed white blood cell count, hemoglobin, and platelet count were normal. Her hematocrit was 36.6. Chemistry profile showed sodium was 140 with potassium 3.3. Her BUN and creatinine were both within the normal range. There is no elevation of her LFTs or lipase. A test was noted to be negative. At the time of my interview she was resting comfortably in bed and she was no distress Concerning past medical history the patient denies any active medical problems Concerning past surgical history she has had her wisdom teeth removed but no abdominal surgeries Concerning social history she does not smoke Concerning family history there is no family history of coronary artery disease . Principal Diagnosis Symptomatic Cholelithiasis Discharge Exam awake/alert, no distress Constitutional WD/WN, vitals as above Eyes PERRL, conjunctivae normal, anicteric sclerae ENMT Ears: no hearing impairment Respiratory normal respiratory effort; no respiratory distress Cardiovascular Rate/Rhythm: regular rate Gastrointestinal (Abdomen) Inspection/Auscultation: abdomen normal to inspection and + abdominal surgical incision (c/d/i with skin glue, no signs of infection ); abdomen not distended Percussion/Palpation: + abdomen tender (expected post op discomfort to palpation ) and abdomen soft Skin no rashes, warm and dry Neurologic moves all extremities Psychiatric A+Ox3, euthymic affect Discharge Data Allergies Allergy/AdvReac Type Severity Reaction Status Date / Time No Known Allergies Allergy Unverified 06/01/24 20:33 Consultations 06/01/24 20:05 ED Decision to Admit Stat Procedures Performed Operation Date: 06/02/24 07:00 Actual Procedures p Laparoscopic Cholecystectomy(Not Applicable) - Aaron Bartholomew, Ordered Studies 06/01/24 18:24 gallbladder Stat Hospital Course (1) Symptomatic cholelithiasis: This is a 24yo female who presented to the [facility] ED on 06/01/24 with complaint of abdominal pain (see HPI for full details). Workup in the ED showed a WBC wnl and a CT a/p concerning for cholelithiasis. The patient was tender to palpation in the RUQ. Patient was admitted to the hopsital, made NPO at [place] with IVF given and booked for the OR. On 06/02/24 the patient went to the OR with Dr. Bartholomew for a Laparoscopic Cholecystectomy. The patient tolerated the procedure well, see operative report for full details. Post operatively the patient's diet was advanced, pain managed on prn meds, and incisions clean/dry/intact. On POD#1 the patient was deemed stable for discharge to home.She was given return precautions, follow up recommendations/restrictions and all questions answered. Sent with a prescription for oral analgesics. Total Time Total Time Spent Total Time Spent (In Minutes): 10 Discharge Plan Discharge Items Patient Disposition: Home - Self-Care Reason For Visit: [place] Discharge Diagnosis: laparoscopic cholecystectomy Activity: Per Instructions section Lifting: No more than 10 pounds Bathing Comment: may shower starting 06/03/24; no soaking in tubs/pools x 2 weeks Exercise/Sports: Wait until after follow-up appointment Driving/Machine Use: no driving while taking narcotics for pain Non-emergency contact: Surgeon Call non-emergency contact if: you have any medication questions, your symptoms worsen, your pain is worsening, you have a fever, your temperature is above 101.5, your wound has increased redness, your wound has increased drainage and your wound pain has increased Follow-up/Referrals: Aaron Bartholomew DO [Physician] - (Please call to schedule follow up in clinic within 2 weeks ) Eileen Parks CRNP [Primary Care Provider] - Diet: Regular Addtl Attending Provider Instructions: SPECIAL CARE INSTRUCTIONS: * You have skin glue over your incisions called dermabond. you may shower with this on. It will tend to dissolve and fall off within a couple weeks. Do not pick at the skin glue * You may shower 06/03 . NO soaking in pools or baths for 2 weeks * No lifting greater than 10lbs. No strenuous exercise until cleared by surgeon. Light walking is accepted. * No driving while taking narcotic pain medication; wait at least 3 days * No drinking alcohol while taking narcotic pain medication * May use Ibuprofen/Tylenol over the counter for pain as tolerated. Do not exceed 3grams of Tylenol per 24 hours * Expect some swelling and bruising. * Diet- you may resume your regular diet Call your doctor if: * Temperature above 101 degrees, nausea/vomiting, fever/chills * Pain not relieved by pain medicine ordered * There is increased drainage or redness from any incision * You have any unanswered questions or concerns [phone]. FOLLOW UP VISIT: If not already scheduled, please call the office for a follow-up visit. Office Pending Studies at Discharge: Yes Studies:: surgical pathology Stand-Alone Forms: My [employer], Work/School Release, Smoking Cessation Medications and DC Order Prescriptions: New oxycodone 5 mg tablet 5 - 10 mg PO .[id number] PRN (Reason: pain, for initial therapy, max 6 tabs per day) Qty: 15 0RF Continued Zepbound 2.5 mg/0.5 mL solution 2.5 mg subcut Q7D Qty: 2 2RF Rx Instructions: Patient has not started. Discharge Orders: Discharge Order (Routine); Ordered 06/03/24 Ordered By: Nelly Lepe Admission Data Admit Date/Time: 06/01/24 20:28 Attending Provider: Aaron Bartholomew Admit Provider: Carlin Peguero Primary Care Provider: Eileen Parks Other Providers: Aaron Bartholomew Other Interventions: Discharge Summary Assessment (RN) Last Done: 06/03/24 08:17 Coding Level of Care Code 52118 IN/OBS DISCH 30 MIN/LESS Diagnoses Symptomatic cholelithiasis K80.20
== END 2024-06-03 09:17 | disposition home or self-care (01) | DRG 418 ==
LOC: ED 18:05 → 3W 20:28 → INTOOBSV 20:28 → OBSVTOIN 20:28 → 3W 21:04